=== PATIENT | female | born 1990 | race Caucasian/White ===

== ENCOUNTER 2017-08-30 13:29 | Inpatient (IN) | payer OTHER ==
[2017-08-30] MEDS ORDERED: HYDROmorphone 2 MG/ML SDV IVPUSH ONE ×2 (14:50→16:22)
[2017-08-30] MEDS ORDERED: Ondansetron 4 MG Tab.DIS PO ONE (14:50)
[2017-08-30] MEDS ORDERED: Sodium Chloride 0.9% 1,000 ML IV ONE (14:53)
[2017-08-30] MEDS ORDERED: Ketorolac 30 MG/ML SDV IVPUSH ONE (15:50)
--- NOTE | 2017-08-30 16:03 | CT ---
INDICATION: Right flank pain with history of a [address] ABDOMEN AND PELVIS WITH CONTRAST: Spiral 1.25-mm axial sections were obtained through the abdomen and pelvis with renal calculus protocol, including sagittal and coronal reconstructions. Total Exam DLP = 657.27 mGy-cm. The examination was obtained 08/30/2017 with no comparisons. The lower lung porras and pleural spaces visualized were unremarkable. The liver was unremarkable, except to note clips compatible with cholecystectomy at the cystic duct. The appendix was normal in caliber, although the wall appears slightly thickened near its distal portion. This is of questionable significance. There is no fat stranding to strongly suggest an acute appendicitis. A very minimal or early appendicitis is difficult to entirely exclude, however. There is noted thickening of the ramos of multiple loops of small bowel, form the jejunum through most of the ileum. Findings may represent a generalized gastroenteritis and should be correlated clinically. No evidence of bowel obstruction was identified. The loops of small bowel with thickened wall are slightly dilated, compared to the distal-most small bowel, which does not show thickened ramos. No other organomegaly, mass lesions, or free fluid collections were identified. No evidence of renal calculi was seen on the right and no evidence of obstructive uropathy is seen bilaterally. There are a few tiny calculi seen in the left kidney. Phleboliths are noted in the pelvis with no other pathologic calcification seen. The spleen, pancreas, adrenals, and kidneys were essentially unremarkable. No retroperitoneal mass was identified. This study is somewhat limited for some portions of evaluation of the abdomen without IV contrast. No other organomegaly, mass lesions, or free fluid collections were identified in the abdomen or pelvis. IMPRESSION: 1. Thickening of the wall of the small bowel from the jejunum through the mid to distal portion of the ileum. Etiology indeterminate. Gastroenteritis may be present - correlate clinically. 2. Slight thickening of the wall of the distal portion of the appendix of questionable significance, since no fat stranding is seen. A very early or mild appendicitis could be present. This is felt to most likely be an insignificant finding in this case. 3. Post cholecystectomy. 4. No evidence of obstructive uropathy or renal calculi could be identified on the right. However, there were some minimal - very tiny calculi seen at the left kidney. CT PELVIS: Examination of the pelvis was obtained by CT, as noted above, and revealed thick-walled loops of distal jejunum and ileum to the distal ileum. Also noted is slight thickening of the wall of the distal appendix, which is of questionable significance, as there is no periappendiceal fat stranding to suggest a definite inflammatory process. Findings may represent a very minimal or early appendicitis, possibly a viral process - correlate clinically. Otherwise, no organomegaly, mass lesions, or free fluid collections were identified in the pelvis. Phleboliths are noted in the lower pelvis. Report was called to Dr. Loya at 1545 hours, 08/30/2017. [facility]
[2017-08-30] MEDS: Sodium Chloride 0.9% 1,000 ML IV SCH (16:50)
[2017-08-30] MEDS ORDERED: Acetaminophen 325 MG Tab PO PRN (16:56)
[2017-08-30] MEDS ORDERED: Zolpidem 5 MG Tab PO PRN (16:56)
[2017-08-30] MEDS ORDERED: Sodium Chloride 0.9% 1,000 ML IV SCH (17:15)
[2017-08-30] MEDS ORDERED: Ondansetron 4 MG/2 ML SDV IVPUSH SCH (17:15)
[2017-08-30] MEDS: HYDROmorphone 2 MG/ML SDV IVPUSH PRN ×3 (18:51→23:04)
[2017-08-30] MEDS: Ondansetron 4 MG/2 ML SDV IV PRN (19:53)
[2017-08-30] MEDS ORDERED: Sertraline 50 MG Tab PO SCH (21:00)
[2017-08-31] MEDS: Sodium Chloride 0.9% 1,000 ML IV SCH ×4 (00:12→23:03)
[2017-08-31] MEDS: HYDROmorphone 2 MG/ML SDV IVPUSH PRN ×7 (01:50→23:06)
[2017-08-31] MEDS: Ondansetron 4 MG/2 ML SDV IV PRN ×5 (01:52→23:08)
--- NOTE | 2017-08-31 08:53 | PCM.HP ---
H&P History of Present Illness - General Date of Service: 08/31/17 Admit Problem/Dx: Admission Diagnosis/Problem Admission Diagnosis/Problem Abdominal pain Source of Information: Patient, RN Notes Reviewed, Significant Other History Limitations: Reports: No Limitations - History of Present Illness Initial Comments - Free Text/Narative: 7-year-old female who came into the ER last night because of abdominal pain right flank, moderate to severe in intensity. Associated vomiting and UTI symptoms inclusive of gross hematuria frequency and burning micturition.In addition,she had fever and chills but denies any GI symptoms of diarrhea S or diarrhea or constipation. She was well until about Sunday and symptoms progressively got worse. She's had cholecystectomy, and is on a long-term or long-acting oral contraceptive. Right Lower Flank Pain Score (Numeric/FACES): 1 - Related Data Allergies/Adverse Reactions: Allergies Allergy/AdvReac Type Severity Reaction Status Date / Time No Known Allergies Allergy Verified 08/30/17 17:03 Home Medications: Home Meds ALPRAZolam [Alprazolam] 0.125 - 0.25 mg PO DAILY PRN 08/31/17 [History] FLUoxetine [PROzac] 60 mg PO DAILY 08/31/17 [History] Necon 1/50 1 tab PO DAILY 08/31/17 [History] traZODone HCl [Trazodone HCl] 50 mg PO BEDTIME PRN 08/31/17 [History] Past Medical History HEENT History: Reports: Impaired Vision Genitourinary History: Reports: Renal Calculus Psychiatric History: Reports: Depression - Infectious Disease History Infectious Disease History: Reports: Chicken Pox - Past Surgical History GI Surgical History: Reports: Cholecystectomy Social & Family History - Family History Family Medical History: Noncontributory - Tobacco Use Smoking Status *Q: Never Smoker Second Hand Smoke Exposure: No - Caffeine Use Caffeine Use: Reports: Soda Other Caffeine Use: 2-3 per day - Alcohol Use Days Per Week of Alcohol Use: 1 Number of Drinks Per Day: 3 Total Drinks Per Week: 3 - Recreational Drug Use Recreational Drug Use: No H&P Review of Systems - Review of Systems: Review Of Systems: ROS reveals no pertinent complaints other than HPI. Exam - Exam Exam: See Below - Vital Signs Vital Signs: Last Vital Signs Temp 99 F 08/31/17 07:59 Pulse 58 L 08/31/17 07:59 Resp 18 08/31/17 07:59 BP 108/57 L 08/31/17 07:59 Pulse Ox 99 08/31/17 07:59 Weight: 68.266 kg - Exam General: Alert, Oriented, 4 HEENT: PERRLA, Hearing Intact, Mucosa Moist & [place], Nares Patent, Normal Nasal Septum, Posterior Pharynx Clear, Conjunctiva Clear, EOMI, EACs Clear, TMs Clear Neck: Supple, Trachea Midline, 2 Lungs: Clear to Auscultation, Normal Respiratory Effort Cardiovascular: Regular Rate, Regular Rhythm GI/Abdominal Exam: Normal Bowel Sounds, No Distention, Tender (RUQ,RLQ). No: Guarding, Rigid, Hepatomegaly (Female) Exam: Deferred Rectal (Female) Exam: Deferred Back Exam: CVA Tenderness (R) Extremities: Normal Inspection, Normal Range of Motion, Non-Tender, No Pedal Edema, Normal Capillary Refill Skin: Warm, Dry, Intact Neurological: Cranial Nerves Intact, Reflexes Equal Bilateral Neuro Extensive - Mental Status: Alert, Oriented x3, Normal Mood/Affect, Normal Cognition Neuro Extensive - Motor, Sensory, Reflexes: CN II-XII Intact, Normal Gait, Normal Reflexes Psychiatric: Alert, Normal Affect, Normal Mood - Patient Data Lab Results Last 24 hrs: Laboratory Results - last 24 hr 08/31/17 08/31/17 08/31/17 Range/Units 06:35 06:35 06:35 WBC 6.1 (4.5-12.0) X10-3/uL RBC 3.72 (3.23-5.20) x10(6)uL Hgb 12.1 (11.5-15.5) g/dL Hct 34.8 (30.0-51.3) % MCV 93.5 (80-96) fL MCH 32.5 (27.7-33.6) pg MCHC 34.7 (32.2-35.4) g/dL RDW 12.2 (11.5-15.5) % Plt Count 238 (125-369) X10(3)uL MPV 7.7 (7.4-10.4) fL Neut % (Auto) 49.0 (46-82) % Lymph % (Auto) 40.0 H (13-37) % [place] % (Auto) 9.2 (4-12) % Eos % (Auto) 1 (1.0-5.0) % Baso % (Auto) 1 (0-2) % Neut # (Auto) 2.9 (1.6-8.3) # Lymph # (Auto) 2.5 (0.6-5.0) # [place] # (Auto) 0.6 (0.0-1.3) # Eos # (Auto) 0.1 (0.0-0.8) # Baso # (Auto) 0.0 (0.0-0.2) # Sodium 141 (135-145) mmol/L Potassium 4.0 (3.5-5.3) mmol/L Chloride 110 (100-110) mmol/L Carbon Dioxide 25 (21-32) mmol/L BUN 6 L (7-18) mg/dL Creatinine 0.6 (0.55-1.02) mg/dL Est Cr Clr Drug Dosing 113.36 mL/min Estimated GFR (MDRD) > 60 (>60) BUN/Creatinine Ratio 10.0 (9-20) Glucose 87 (80-116) mg/dL Calcium 7.7 L (8.6-10.2) mg/dL Total Bilirubin 0.5 (0.1-1.3) mg/dL AST 12 D (5-25) IU/L ALT 12 D (12-36) U/L Alkaline Phosphatase 28 L (56-112) IU/L C-Reactive Protein 0.3 L (0.5-0.9) mg/dL Total Protein 5.5 L (6.0-8.0) g/dL Albumin 2.7 L (3.5-5.2) g/dL Globulin 2.8 g/dL Albumin/Globulin Ratio 1.0 Result Diagrams: 08/31/17 06:35 08/31/17 06:35 *Q Meaningful Use (ADM) - VTE *Q VTE Criteria *Q: - Stroke *Q Stroke Criteria *Q: - AMI *Q AMI Criteria *Q: - Problem List (1) Acute pyelonephritis SNOMED Code(s): 33811071 ICD Code: N10 - ACUTE PYELONEPHRITIS Status: Acute Current Visit: Yes (2) Abdominal pain SNOMED Code(s): 38853877 ICD Code: R10.9 - UNSPECIFIED ABDOMINAL PAIN Status: Acute Current Visit : Yes Qualifiers: Abdominal location: generalized Qualified Code(s): R10.84 - Generalized abdominal pain Problem List Initiated/Reviewed/Updated: Yes Orders Last 24hrs: Active Orders 24 hr Category Date Time Status Vital Signs [RC] Q4H Care 08/30/17 16:56 Active Clear Liquid Diet [DIET] Diet 08/30/17 Dinner Ordered Acetaminophen [Tylenol] Med 08/30/17 16:56 Active 650 mg PO Q4H PRN Ciprofloxacin in D5W [Cipro in D5W 400 MG/200 ML] 400 Med 08/31/17 08:45 Ordered mg Premix Bag 1 bag IV Q12HR HYDROmorphone [Dilaudid] Med 08/31/17 08:39 Ordered 2 mg IVPUSH Q4H PRN Ketorolac [Toradol] Med 08/31/17 08:45 Ordered 30 mg IVPUSH Q6H Ondansetron [Zofran] Med 08/30/17 16:56 Active 4 mg IV Q4H PRN Sertraline [Zoloft] Med 08/30/17 21:00 Active 50 mg PO BEDTIME Sodium Chloride 0.9% [Normal Saline] 1,000 ml Med 08/30/17 16:50 Active IV ASDIRECTED Zolpidem [Ambien] Med 08/30/17 16:56 Active 5 mg PO BEDTIME PRN Medication Orders Acetaminophen (Tylenol) 650 mg PO Q4H PRN PRN Reason: Pain (Mild 1-3)/fever Hydromorphone HCl (Dilaudid) 2 mg IVPUSH Q4H PRN PRN Reason: Breakthrough Pain Sodium Chloride (Normal Saline) 1,000 mls @ 150 mls/hr IV ASDIRECTED ROCKY Last Admin: 08/31/17 07:03 Dose: 150 mls/hr Infusion: 08/31/17 06:53 Dose: 150 mls/hr Admin: 08/31/17 00:12 Dose: 150 mls/hr Infusion: 08/31/17 00:03 Dose: 150 mls/hr Infusion: 08/30/17 18:27 Dose: 150 mls/hr Admin: 08/30/17 16:50 Dose: 100 mls/hr Ciprofloxacin/Dextrose 400 mg/ (Premix) 200 mls @ 200 mls/hr IV Q12HR ROCKY Ketorolac Tromethamine (Toradol) 30 mg IVPUSH Q6H ROCKY Stop: 09/05/17 08:39 Ondansetron HCl (Zofran) 4 mg IV Q4H PRN PRN Reason: Nausea/Vomiting Last Admin: 08/31/17 01:52 Dose: 4 mg Admin: 08/30/17 19:53 Dose: 4 mg Sertraline HCl (Zoloft) 50 mg PO BEDTIME ROCKY Last Admin: 08/30/17 20:52 Dose: Zolpidem Tartrate (Ambien) 5 mg PO BEDTIME PRN PRN Reason: Sleep Assessment/Plan Comment:: I have personally reviewed the CT report, but also showed jejunal thickening, and enlarged appendix but I feel that her symptoms most likely are a result of acute pyelonephritis. She has no white cell count elevation or shift. Urine is highly positive for infection,and cultures pending.i will order a GC and chlamydia on it.Meantime I will start IV Levaquin, increase Dilaudid to 2 g every 4 hours and use ketorolac scheduled. I will consult Dr. Wolf to see if he has an opinion about the appendix. Plan to repeat a CBC and CMP in the morning.
[2017-08-31] MEDS ORDERED: ALPRAZolam 0.25 MG Tab PO PRN (09:11)
[2017-08-31] MEDS: Ciprofloxacin in D5W 400 MG in Premix Bag 1 BAG IV SCH ×4 (09:14→20:50)
[2017-08-31] MEDS ORDERED: traZODone 50 MG Tab PO PRN (09:15)
[2017-08-31] MEDS: Ketorolac 30 MG/ML SDV IVPUSH SCH ×3 (09:17→20:46)
--- NOTE | 2017-08-31 09:46 | PCM.CONS ---
H&P History of Present Illness - General Date of Service: 08/31/17 Admit Problem/Dx: Admission Diagnosis/Problem Admission Diagnosis/Problem Abdominal pain - History of Present Illness Initial Comments - Free Text/Narative: 27 yo mani who was admitted yesterday with a complaint of right sided flank pain as well as dysuria. Pain developed over several days. Noted to have gotten worse. She has had some anorexia. WBC was normal. In the ED developed some nausea and vomiting. UA findings are notable for a UTI. CT scan was obtained. Demonstrating some ? thickening of the distal appendix. No fat stranding was noted. The small intestine also had some findings suggestive of gastroenteritis. Right Lower Flank Pain Score (Numeric/FACES): 1 - Related Data Allergies/Adverse Reactions: Allergies Allergy/AdvReac Type Severity Reaction Status Date / Time No Known Allergies Allergy Verified 08/30/17 17:03 Home Medications: Home Meds ALPRAZolam [Alprazolam] 0.125 - 0.25 mg PO DAILY PRN 08/31/17 [History] FLUoxetine [PROzac] 60 mg PO DAILY 08/31/17 [History] Necon 1/50 1 tab PO DAILY 08/31/17 [History] traZODone HCl [Trazodone HCl] 50 mg PO BEDTIME PRN 08/31/17 [History] Past Medical History HEENT History: Reports: Impaired Vision Genitourinary History: Reports: Renal Calculus Psychiatric History: Reports: Depression - Infectious Disease History Infectious Disease History: Reports: Chicken Pox - Past Surgical History GI Surgical History: Reports: Cholecystectomy Social & Family History - Family History Family Medical History: Noncontributory - Tobacco Use Smoking Status *Q: Never Smoker Second Hand Smoke Exposure: No - Caffeine Use Caffeine Use: Reports: Soda Other Caffeine Use: 2-3 per day - Alcohol Use Days Per Week of Alcohol Use: 1 Number of Drinks Per Day: 3 Total Drinks Per Week: 3 - Recreational Drug Use Recreational Drug Use: No H&P Review of Systems - Review of Systems: Review Of Systems: See Below General: Reports: Decreased Appetite Pulmonary: Reports: No Symptoms Cardiovascular: Reports: No Symptoms Gastrointestinal: Reports: Nausea Genitourinary: Reports: Dysuria, Frequency, Flank Pain Exam - Exam Exam: See Below - Vital Signs Vital Signs: Last Vital Signs Temp 37.2 C 08/31/17 07:59 Pulse 58 L 08/31/17 07:59 Resp 18 08/31/17 07:59 BP 108/57 L 08/31/17 07:59 Pulse Ox 99 08/31/17 07:59 Weight: 68.266 kg - Exam General: Alert, Oriented, Cooperative Lungs: Clear to Auscultation, Normal Respiratory Effort Cardiovascular: Regular Rate, Regular Rhythm GI/Abdominal Exam: Normal Bowel Sounds, Soft, Non-Tender Back Exam: CVA Tenderness (R) Skin: Warm, Dry, Intact - Patient Data Lab Results Last 24 hrs: Laboratory Results - last 24 hr 08/31/17 08/31/17 08/31/17 Range/Units 06:35 06:35 06:35 WBC 6.1 (4.5-12.0) X10-3/uL RBC 3.72 (3.23-5.20) x10(6)uL Hgb 12.1 (11.5-15.5) g/dL Hct 34.8 (30.0-51.3) % MCV 93.5 (80-96) fL MCH 32.5 (27.7-33.6) pg MCHC 34.7 (32.2-35.4) g/dL RDW 12.2 (11.5-15.5) % Plt Count 238 (125-369) X10(3)uL MPV 7.7 (7.4-10.4) fL Neut % (Auto) 49.0 (46-82) % Lymph % (Auto) 40.0 H (13-37) % [place] % (Auto) 9.2 (4-12) % Eos % (Auto) 1 (1.0-5.0) % Baso % (Auto) 1 (0-2) % Neut # (Auto) 2.9 (1.6-8.3) # Lymph # (Auto) 2.5 (0.6-5.0) # [place] # (Auto) 0.6 (0.0-1.3) # Eos # (Auto) 0.1 (0.0-0.8) # Baso # (Auto) 0.0 (0.0-0.2) # Sodium 141 (135-145) mmol/L Potassium 4.0 (3.5-5.3) mmol/L Chloride 110 (100-110) mmol/L Carbon Dioxide 25 (21-32) mmol/L BUN 6 L (7-18) mg/dL Creatinine 0.6 (0.55-1.02) mg/dL Est Cr Clr Drug Dosing 113.36 mL/min Estimated GFR (MDRD) > 60 (>60) BUN/Creatinine Ratio 10.0 (9-20) Glucose 87 (80-116) mg/dL Calcium 7.7 L (8.6-10.2) mg/dL Total Bilirubin 0.5 (0.1-1.3) mg/dL AST 12 D (5-25) IU/L ALT 12 D (12-36) U/L Alkaline Phosphatase 28 L (56-112) IU/L C-Reactive Protein 0.3 L (0.5-0.9) mg/dL Total Protein 5.5 L (6.0-8.0) g/dL Albumin 2.7 L (3.5-5.2) g/dL Globulin 2.8 g/dL Albumin/Globulin Ratio 1.0 Result Diagrams: 08/31/17 06:35 08/31/17 06:35 Consult PN Assessment/Plan (1) Acute pyelonephritis SNOMED Code(s): 84894025 Code(s): N10 - ACUTE PYELONEPHRITIS Current Visit: Yes Problem List Initiated/Reviewed/Updated: Yes My Orders Last 24 Hours: Does not appear to have acute appendicitis on either physical exam or lab findings. CT scan findings are rather non specific. Plan: reconsult as needed.
--- NOTE | 2017-08-31 09:47 | ER ---
DATE SEEN: 08/30/2017 TIME SEEN: The patient was seen at 1355 hours. HISTORY OF PRESENT ILLNESS: This is a 27-year-old with previous history of passing kidney stones, was passing urine in the night and noted hematuria. This is associated with back pain, right flank discomfort. The pain was now about 8/10 in intensity and gradually increased. She works for the [employer], and is here on visitation. She does not live with this community. She lives in [place]. She denies being , having sex for the last time 2 weeks. She has menstrual period in the interval. She had a kidney stone in 2009, about 3 years ago she graduated from high school. She took a test a week ago and said it was negative ([id number] ). She has had a cholecystectomy. No appendectomy. No pelvic surgeries. She denies frequency, urgency, or dysuria, but she has had hematuria. She wonders if she has had a renal stone present. She has some nausea and decreased p.o. intake, slightly loose stools, but minimal. No blood in the stool or black tarry stools. REVIEW OF SYSTEMS: Otherwise negative except for noted above. PHYSICAL EXAMINATION: VITAL SIGNS: Blood pressure 130/80, heart rate 96, respirations 18, temperature is 36.6 degrees centigrade, and oxygen saturation 99%. CONSTITUTIONAL: She has had disk disease in the past, L4-L5. She is very distraught, in tears. She has extensive pain presently. Denies chemical dependency. She notes the right flank pain. The pain is in right anterior axillary line, extensive right inguinal region, and also right flank. HEENT: Without abnormality. TMs negative. Pharynx without abnormality. She is in tears with the pain she is experiencing. She is in a position, it is painful to sit up. LUNGS: Clear without rales, rhonchi, or wheezes. HEART: S1, S2. No murmur. No irregular rate and rhythm. No tachycardia. ABDOMEN: Soft with moderate guarding in right lower quadrant. Most specifically focal area 6 cm above the mid inguinal ligament, she has moderate focal tenderness. This radiates up to the right side from anterior axillary line to the mid axillary line and mild and less so to the right flank. CVA percussion of the right flank is positive. Left CVA percussion negative. EXTREMITIES: No spinous tenderness in upper extremities and Lasegue's sign in leg with straight leg raise is negative. Deep tendon reflexes normal in upper and lower extremities. PELVIC: With nurse present, arrangements were made to do a pelvic exam. Speculum exam demonstrated nulliparous introitus, muscular structures noted. Moderate discomfort with pressure on the right vaginal wall, but after she was explained pressure is used for as a baseline, she said it was not quite as bad as she was concerned. No ovarian mass is noted. Uterus is small and nontender. No blood at the cervical os. WORKING DIAGNOSIS: Etiology, possible renal stone and/or gut abnormality. CT was performed, demonstrated no renal stones in the right side and few renal crystals in left kidney. No hydroureter. No hydronephrosis. She had moderate abnormal thickened jejunum. No abnormality of appendix. No periappendiceal abnormalities or stranding. She had mild L4-L5 degenerative disk disease, absent gallbladder. ASSESSMENT: Pelvic pain, etiology undetermined. Most likely, possibly a function of jejunal pain with marked jejunal thickening. It is possible she may have Crohn disease, early manifestation of this, but she did not have skippers mucosa of Crohn's. She does have uniformed thickening and swelling of the jejunum (rule out ulcerative colitis). DIAGNOSES: 1. Abdominal pain. 2. Jejunal thickening and inflammation suggesting jejunal small-bowel inflammation. 3. Not . 4. Ovarian cyst. 5. Possible urinary tract infection. Positive nitrites, moderate epithelial, moderate bacteria. The latter suggests she had moderate swelling and this is not a true urinary tract infection. 6. Normal white count without any neutrophilia suggesting minimally inflammatory process. No suggestion of bowel involvement. 7. Does not reflect the jejunal involvement as per nursing. This normal white count with normal differential did not reflect the jejunal inflammation nor does it reflect the extensive pain she has experienced. 8. Doubt psychiatric psychometric pain secondary to gait. 9. No evidence for chemical abuse. PLAN: Dehydration. Need for pain medicine. Plan, admit, observe, IV hydration, status discussed with Dr. Feldman. Forego antibiotics at this point. We will do also a cath urine specimen to ascertain she truly does not have a urine infection. /[id number] LS/MODL
[2017-08-31] MEDS: FLUoxetine 20 MG Cap PO SCH (10:04)
--- NOTE | 2017-08-31 14:17 | HP ---
ADMISSION DATE: 08/30/2017 REASON FOR VISIT: Complicated nausea and vomiting. HISTORY OF PRESENT ILLNESS: Lucy Gale is a 27-year-old female, fianc in attendance, seen today for review. She was in [place], doing a blood drive. A little fatigued, a little tired, progressive nausea and vomiting, protracted vomiting, severe abdominal pain. Admission to the hospital is indicated. Also noted some blood in her urine. MEDICATIONS: Reviewed and appropriate. PAST MEDICAL HISTORY: Significant for no previous operative procedures, other than cholecystectomy. CHRONIC ILLNESSES: None. She has been in good health. SOCIAL HISTORY: Lives in [place]. Works for [employer]. Engaged. Nonsmoker. Nil alcohol consumption. No illicit drug use. FAMILY HISTORY: Noncontributory. REVIEW OF SYSTEMS: CONSTITUTIONAL: Feeling generally poorly. EYES: Sees well. EARS: Hears well. OROPHARYNX: Intact dentition. CHEST: She has no cough, wheeze, or congestion. GI: Please see HPI. : Please see HPI. SKIN: No open sores or lesions. ENDOCRINE: No excessive thirst or urination. ALLERGIC: No chronic cough, wheeze, or congestion. PSYCHIATRIC: Mood is stable. PHYSICAL EXAMINATION: GENERAL: Appears ill. HEENT: Funduscopic benign. Bright TMs. Clear nasal discharge. Mouth: Oropharynx is clear. CHEST: Clear in all lung porras. HEART: Regular rate murmur. ABDOMEN: Diffusely tender, good bowel sounds. IMPRESSION: Complicated gastroenteritis, nausea, vomiting, hematuria. PLAN: Medications, care, and treatment have been reviewed, all complementary. We will hold in the meantime. We will start IV fluids, analgesic control, cooperative care, and well being. Surgical consultation under consideration. /[id number] EVE/ALLY
[2017-08-31] MEDS: Phenazopyridine 95 MG Tab PO PRN (17:36)
[2017-09-01] MEDS: Ondansetron 4 MG/2 ML SDV IV PRN ×3 (03:30→19:36)
[2017-09-01] MEDS: Ketorolac 30 MG/ML SDV IVPUSH SCH ×4 (03:30→20:59)
[2017-09-01] MEDS: HYDROmorphone 2 MG/ML SDV IVPUSH PRN ×2 (05:20→09:24)
[2017-09-01] MEDS: Sodium Chloride 0.9% 1,000 ML IV SCH (06:00)
[2017-09-01] MEDS: Ciprofloxacin in D5W 400 MG in Premix Bag 1 BAG IV SCH ×4 (08:13→21:02)
[2017-09-01] MEDS: FLUoxetine 20 MG Cap PO SCH (08:14)
[2017-09-01] MEDS: Phenazopyridine 95 MG Tab PO PRN ×2 (08:14→13:19)
--- NOTE | 2017-09-01 09:11 | PCM.PN ---
- General Info Date of Service: 09/01/17 Subjective Update: Pain is about 5 out of 10 right upper quadrant. Still has no appetite and has nausea. This less blood in the urine. Functional Status: Reports: Pain Controlled. Denies: Tolerating Diet - Review of Systems General: Reports: No Symptoms HEENT: Reports: No Symptoms - Patient Data Vitals - Most Recent: Last Vital Signs Temp 98.3 F 09/01/17 03:30 Pulse 85 09/01/17 08:26 Resp 16 09/01/17 08:26 BP 115/81 09/01/17 08:26 Pulse Ox 97 09/01/17 08:26 Weight - Most Recent: 68.266 kg I&O - Last 24 Hours: Intake & Output 08/31/17 09/01/17 09/01/17 22:59 06:59 14:59 Intake Total 919 1347 Output Total 100 Balance 919 1247 Lab Results Last 24 Hours: Laboratory Results - last 24 hr 09/01/17 09/01/17 Range/Units 06:20 06:20 WBC 4.8 (4.5-12.0) X10-3/uL RBC 3.91 (3.23-5.20) x10(6)uL Hgb 12.4 (11.5-15.5) g/dL Hct 36.5 (30.0-51.3) % MCV 93.3 (80-96) fL MCH 31.6 (27.7-33.6) pg MCHC 33.9 (32.2-35.4) g/dL RDW 11.8 (11.5-15.5) % Plt Count 256 (125-369) X10(3)uL MPV 7.7 (7.4-10.4) fL Neut % (Auto) 57.5 (46-82) % Lymph % (Auto) 32.4 (13-37) % [place] % (Auto) 7.9 (4-12) % Eos % (Auto) 2 (1.0-5.0) % Baso % (Auto) 1 (0-2) % Neut # (Auto) 2.7 (1.6-8.3) # Lymph # (Auto) 1.6 (0.6-5.0) # [place] # (Auto) 0.4 (0.0-1.3) # Eos # (Auto) 0.1 (0.0-0.8) # Baso # (Auto) 0.0 (0.0-0.2) # Sodium 138 (135-145) mmol/L Potassium 3.8 (3.5-5.3) mmol/L Chloride 106 (100-110) mmol/L Carbon Dioxide 24 (21-32) mmol/L BUN 3 L (7-18) mg/dL Creatinine 0.6 (0.55-1.02) mg/dL Est Cr Clr Drug Dosing 113.36 mL/min Estimated GFR (MDRD) > 60 (>60) BUN/Creatinine Ratio 5.0 L (9-20) Glucose 81 (80-116) mg/dL Calcium 7.9 L (8.6-10.2) mg/dL Total Bilirubin 0.6 (0.1-1.3) mg/dL AST 16 D (5-25) IU/L ALT 14 D (12-36) U/L Alkaline Phosphatase 34 L (56-112) IU/L Total Protein 5.8 L (6.0-8.0) g/dL Albumin 2.9 L (3.5-5.2) g/dL Globulin 2.9 g/dL Albumin/Globulin Ratio 1.0 Med Orders - Current: Current Medications Acetaminophen (Tylenol) 650 mg PO Q4H PRN PRN Reason: Pain (Mild 1-3)/fever Alprazolam (Xanax) 0.25 mg PO DAILY PRN PRN Reason: Anxiety Fluoxetine HCl (Prozac) 60 mg PO DAILY [facility] Last Admin: 09/01/17 08:14 Dose: 60 mg Ciprofloxacin/Dextrose 400 mg/ (Premix) 200 mls @ 200 mls/hr IV Q12H [facility] Last Admin: 09/01/17 08:13 Dose: 200 mls/hr Ketorolac Tromethamine (Toradol) 30 mg IVPUSH Q6H [facility] Stop: 09/05/17 08:39 Last Admin: 09/01/17 08:14 Dose: 30 mg Morphine Sulfate (Morphine) 2 mg IVPUSH Q6H PRN PRN Reason: Breakthrough Pain Non-Formulary Medication (Necon 150) 1 tab PO BEDTIME [facility] Ondansetron HCl (Zofran) 4 mg IV Q4H PRN PRN Reason: Nausea/Vomiting Last Admin: 09/01/17 08:14 Dose: 4 mg Phenazopyridine HCl (Urinary Pain Relief) 190 mg PO TID PRN PRN Reason: Pain Last Admin: 09/01/17 08:14 Dose: 190 mg Trazodone HCl (Trazodone) 50 mg PO BEDTIME PRN PRN Reason: SLEEP Zolpidem Tartrate (Ambien) 5 mg PO BEDTIME PRN PRN Reason: Sleep Discontinued Medications Hydromorphone HCl (Dilaudid) 1 mg IVPUSH ONETIME ONE Stop: 08/30/17 14:51 Last Admin: 08/30/17 14:56 Dose: 1 mg Hydromorphone HCl (Dilaudid) 1 mg IVPUSH ONETIME ONE Stop: 08/30/17 16:23 Last Admin: 08/30/17 16:35 Dose: 1 mg Hydromorphone HCl (Dilaudid) 1 mg IVPUSH Q2H PRN PRN Reason: Abdominal Pain Last Admin: 08/31/17 07:25 Dose: 1 mg Hydromorphone HCl (Dilaudid) 2 mg IVPUSH Q4H PRN PRN Reason: Breakthrough Pain Last Admin: 09/01/17 05:20 Dose: 2 mg Sodium Chloride (Normal Saline) 1,000 mls @ 500 mls/hr IV .BOLUS ONE Stop: 08/30/17 16:52 Last Admin: 08/30/17 14:45 Dose: 500 mls/hr Sodium Chloride (Normal Saline) 1,000 mls @ 150 mls/hr IV ASDIRECTED [facility] Last Admin: 09/01/17 06:00 Dose: 150 mls/hr Sodium Chloride (Normal Saline) 1,000 mls @ 150 mls/hr IV ASDIRECTED [facility] Ketorolac Tromethamine (Toradol) 30 mg IVPUSH ONETIME ONE Stop: 08/30/17 15:51 Last Admin: 08/30/17 16:00 Dose: 30 mg Ondansetron HCl (Zofran Odt) 4 mg PO ONETIME ONE Stop: 08/30/17 14:51 Last Admin: 08/30/17 14:56 Dose: 4 mg Sertraline HCl (Zoloft) 50 mg PO BEDTIME [facility] Last Admin: 08/30/17 20:52 Dose: Not Given - Exam General: Alert HEENT: Pupils Equal GI/Abdominal Exam: Normal Bowel Sounds Back Exam: CVA Tenderness (R) - Problem List & Annotations (1) Acute pyelonephritis SNOMED Code(s): 23765916 Code(s): N10 - ACUTE PYELONEPHRITIS Status: Acute Current Visit: Yes (2) Abdominal pain SNOMED Code(s): 62969696 Code(s): R10.9 - UNSPECIFIED ABDOMINAL PAIN Status: Acute Current Visit: Yes Qualifiers: Abdominal location: generalized Qualified Code(s): R10.84 - Generalized abdominal pain - Problem List Review Problem List Initiated/Reviewed/Updated: Yes - My Orders Last 24 Hours: My Active Orders 08/31/17 17:11 Phenazopyridine [Urinary Pain Relief] 190 mg PO TID PRN 09/01/17 09:07 Renal Comp [US] Routine 09/01/17 09:08 Morphine 2 mg IVPUSH Q6H PRN 09/01/17 Lunch Regular Diet [DIET] - Plan Plan:: I appreciate the surgeon's input. I will order renal ultrasound today to make sure she doesn't have abscess. We'll continue Cipro but Hep-Lock the IV so she can eat and drink ambulate, possibly discharge tomorrow. Consequently of went down on the Dilaudid and will do morphine instead for pain control
[2017-09-01] MEDS: Morphine 2 MG/ML Syringe IVPUSH PRN ×2 (13:19→19:36)
[2017-09-01] MEDS: Sodium Chloride 0.9% 10 ML Syringe FLUSH PRN ×3 (16:50→22:14)
[2017-09-01] MEDS ORDERED: NECON PO SCH (21:00)
[2017-09-02] MEDS: Ketorolac 30 MG/ML SDV IVPUSH SCH ×2 (03:11→08:30)
[2017-09-02] MEDS: Sodium Chloride 0.9% 10 ML Syringe FLUSH PRN ×3 (03:12→08:37)
[2017-09-02] MEDS: Morphine 2 MG/ML Syringe IVPUSH PRN ×2 (03:26→09:35)
[2017-09-02] MEDS: Ondansetron 4 MG/2 ML SDV IV PRN ×2 (03:26→08:32)
--- NOTE | 2017-09-02 08:25 | PCM.PN ---
- General Info Date of Service: 09/02/17 Subjective Update: patient complains of right flank pain on and off - Patient Data Vitals - Most Recent: Last Vital Signs Temp 97.7 F 09/02/17 07:49 Pulse 97 09/02/17 07:49 Resp 18 09/02/17 07:49 BP 116/72 09/02/17 07:49 Pulse Ox 97 09/02/17 07:49 Weight - Most Recent: 68.266 kg I&O - Last 24 Hours: Intake & Output 09/01/17 09/02/17 09/02/17 22:59 06:59 14:59 Intake Total 230 0 Balance 230 0 Med Orders - Current: Current Medications Acetaminophen (Tylenol) 650 mg PO Q4H PRN PRN Reason: Pain (Mild 1-3)/fever Alprazolam (Xanax) 0.25 mg PO DAILY PRN PRN Reason: Anxiety Fluoxetine HCl (Prozac) 60 mg PO DAILY [facility] Last Admin: 09/01/17 08:14 Dose: 60 mg Ciprofloxacin/Dextrose 400 mg/ (Premix) 200 mls @ 200 mls/hr IV Q12H [facility] Last Admin: 09/01/17 21:02 Dose: 200 mls/hr Ketorolac Tromethamine (Toradol) 30 mg IVPUSH Q6H [facility] Stop: 09/05/17 08:39 Last Admin: 09/02/17 03:11 Dose: 30 mg Morphine Sulfate (Morphine) 2 mg IVPUSH Q6H PRN PRN Reason: Breakthrough Pain Last Admin: 09/02/17 03:26 Dose: 2 mg Non-Formulary Medication (Necon 1/50) 1 tab PO BEDTIME [facility] Ondansetron HCl (Zofran) 4 mg IV Q4H PRN PRN Reason: Nausea/Vomiting Last Admin: 09/02/17 03:26 Dose: 4 mg Phenazopyridine HCl (Urinary Pain Relief) 190 mg PO TID PRN PRN Reason: Pain Last Admin: 09/01/17 13:19 Dose: 190 mg Sodium Chloride (Saline Flush) 10 ml FLUSH ASDIRECTED PRN PRN Reason: IV Use Last Admin: 09/02/17 07:43 Dose: 10 ml Trazodone HCl (Trazodone) 50 mg PO BEDTIME PRN PRN Reason: SLEEP Zolpidem Tartrate (Ambien) 5 mg PO BEDTIME PRN PRN Reason: Sleep Discontinued Medications Hydromorphone HCl (Dilaudid) 1 mg IVPUSH ONETIME ONE Stop: 08/30/17 14:51 Last Admin: 08/30/17 14:56 Dose: 1 mg Hydromorphone HCl (Dilaudid) 1 mg IVPUSH ONETIME ONE Stop: 08/30/17 16:23 Last Admin: 08/30/17 16:35 Dose: 1 mg Hydromorphone HCl (Dilaudid) 1 mg IVPUSH Q2H PRN PRN Reason: Abdominal Pain Last Admin: 08/31/17 07:25 Dose: 1 mg Hydromorphone HCl (Dilaudid) 2 mg IVPUSH Q4H PRN PRN Reason: Breakthrough Pain Last Admin: 09/01/17 09:24 Dose: 2 mg Sodium Chloride (Normal Saline) 1,000 mls @ 500 mls/hr IV .BOLUS ONE Stop: 08/30/17 16:52 Last Admin: 08/30/17 14:45 Dose: 500 mls/hr Sodium Chloride (Normal Saline) 1,000 mls @ 150 mls/hr IV ASDIRECTED [facility] Last Admin: 09/01/17 06:00 Dose: 150 mls/hr Sodium Chloride (Normal Saline) 1,000 mls @ 150 mls/hr IV ASDIRECTED [facility] Ketorolac Tromethamine (Toradol) 30 mg IVPUSH ONETIME ONE Stop: 08/30/17 15:51 Last Admin: 08/30/17 16:00 Dose: 30 mg Ondansetron HCl (Zofran Odt) 4 mg PO ONETIME ONE Stop: 08/30/17 14:51 Last Admin: 08/30/17 14:56 Dose: 4 mg Sertraline HCl (Zoloft) 50 mg PO BEDTIME [facility] Last Admin: 08/30/17 20:52 Dose: Not Given - Exam General: Alert, Oriented Neurological: No New Focal Deficit - Problem List & Annotations (1) Acute pyelonephritis SNOMED Code(s): 56625952 Code(s): N10 - ACUTE PYELONEPHRITIS Status: Acute Current Visit: Yes (2) Abdominal pain SNOMED Code(s): 09967498 Code(s): R10.9 - UNSPECIFIED ABDOMINAL PAIN Status: Acute Current Visit: Yes Qualifiers: Abdominal location: generalized Qualified Code(s): R10.84 - Generalized abdominal pain - Problem List Review Problem List Initiated/Reviewed/Updated: Yes - My Orders Last 24 Hours: My Active Orders 09/01/17 09:07 Renal Comp [US] Routine 09/01/17 09:08 Morphine 2 mg IVPUSH Q6H PRN 09/01/17 16:50 Sodium Chloride 0.9% [Saline Flush] 10 ml FLUSH ASDIRECTED PRN 09/01/17 Lunch Regular Diet [DIET] - Plan Plan:: ultrasound showed mild hydronephrosis tiny calculi but no obstructive uropathy. I will send the patient home with some antibiotics orally and pain medications.
[2017-09-02] MEDS: Ciprofloxacin in D5W 400 MG in Premix Bag 1 BAG IV SCH ×2 (08:48)
[2017-09-02] MEDS: FLUoxetine 20 MG Cap PO SCH (08:55)
--- NOTE | 2017-09-02 09:50 | DISCH ---
DISCHARGE DATE: 09/02/2017 REASON FOR ADMISSION: Abdominal pain. DISCHARGE DIAGNOSES: 1. Urinary tract infection. 2. Acute pyelonephritis. BRIEF HISTORY: This is a 27-year-old female who came into the ER with abdominal pain, burning micturition, was found to have gross hematuria, nitrite positive, and a CT of the abdomen was negative with the exception of possible colitis. The patient was treated with IV antibiotics and fluids, improved over time, and the urine culture grew mixed jeffy. We did a renal ultrasound that was negative for any abscesses. Her white cell count went down to 12.5. She was discharged home on Levaquin after an initial treatment with ciprofloxacin, which made her nauseous. DISCHARGE MEDICATIONS: 1. Levaquin 500 mg p.o. daily x3 days. 2. Zofran 4 mg ODT t.i.d. p.r.n. 3. Hydrocodone 1 tablet b.i.d. p.r.n. 10 tablets. 4. Pyridium 200 mg t.i.d. p.r.n. 15 tablets. FOLLOWUP: The patient will be seen in the office by Dr. Alison De La Vega at [facility] within 1 week of discharge. Please note that I spent more than 35 minutes in the discharge of this patient. /[id number] MAC/ALLY
--- NOTE | 2017-09-04 12:23 | US ---
INDICATION: Pyelonephritis. RENAL ULTRASOUND COMPLETE: Multiple ultrasonic images were obtained of the kidneys, 09/01/2017. No comparisons were available, except for CT scan of 08/30. The right kidney measured 10.4 x 4.4 x 5.5 cm. The left kidney measured 10.1 x 4.7 x 5.9 cm. The pyelocaliceal system on the right is slightly more prominent than the left, with the possibility that minimal or early obstructive uropathy could be present. This should be correlated clinically. This may be an incidental finding. The tiny calculi seen on CT scan on the left are not visible. The kidneys were otherwise unremarkable, with normal appearing blood flow. IMPRESSION: Essentially normal renal ultrasound. Very minimal asymmetry in the collecting systems, the right being slightly more prominent than the left, of questionable significance, and possibly a normal variant, or incidental. However, the possibility of minimal or previous obstructive uropathy cannot be entirely excluded on the right. MTDD
== END 2017-09-02 10:30 | disposition home or self-care (01) | DRG 690 ==
LOC: FB.ED 13:29 → FB.MS 16:48 → OBSVTOIN 08-31 10:02
PROVIDERS: ADMIT Emergency Medicine; ATTEND Family Medicine
DX: N10 Acute pyelonephritis (principal); N39.0 Urinary tract infection, site not specified; R10.84 Generalized abdominal pain; F32.9 Major depressive disorder, single episode, unspecified; H54.7 Unspecified visual loss
CPT/HCPCS: 36415; 74176; 76770; 80053; 81001; 81025; 85025; 86140; 87086; 87491; 87591; 96361; 96365; 96374; 96375; 96376; 99285; A9270-GY; G0378; J0744; J1170; J1885; J2270; J2405; J7040; J7050